=== PATIENT | male | born 1960 | race African-American/Black ===

== ENCOUNTER 2021-04-04 07:37 | Day surgery (SDC) | payer BC ==
[2021-04-03 09:07] VITALS: BMI 34.4
[2021-04-04] MEDS ORDERED: Lidocaine 1% MPF 2 ML VIAL ONE (07:47)
[2021-04-04] MEDS ORDERED: PROPOFOL 20 ML ONE ×2 (09:01)
[2021-04-04] MEDS ORDERED: Fentanyl 100 MCG/2 ML VIAL ONE (09:02)
== END 2021-04-04 11:40 | disposition home or self-care (01) ==
LOC: CSHSDC 07:37
PROVIDERS: ATTEND Internal Medicine Gastroenterology
PROC: 0DBN8ZZ Excision of Sigmoid Colon, Via Natural or Artificial Opening Endoscopic (ICD-10-PCS; principal; 2021-04-04)
DX: Z12.11 Encounter for screening for malignant neoplasm of colon (principal); K63.5 Polyp of colon; K64.9 Unspecified hemorrhoids; I10 Essential (primary) hypertension; E11.9 Type 2 diabetes mellitus without complications; E78.5 Hyperlipidemia, unspecified; N40.0 Benign prostatic hyperplasia without lower urinary tract symptoms; E66.9 Obesity, unspecified; G47.30 Sleep apnea, unspecified
CPT/HCPCS: 88305; J2704; J3010